=== PATIENT | male | born 1975 | race Caucasian/White ===

== ENCOUNTER 2017-09-13 09:42 | Emergency (ER) | payer OTHER ==
[2017-09-13 09:48] VITALS: BP 136/84; PULSE 81; RESP 18; TEMP 97.8
[2017-09-13] MEDS ORDERED: PROPARACAINE 0.5% OPHTH DROPS 15 ML BTL RIGHT EYE STA (10:01)
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
[2017-09-13] MEDS ORDERED: TOBRAMYCIN 0.3% OPHTH DROPS 5 ML BTL RIGHT EYE STA (10:08)
== END 2017-09-13 10:21 | disposition home or self-care (01) ==
LOC: EC 09:42
DX: Z77.098 Contact with and (suspected) exposure to other hazardous, chiefly nonmedicinal, chemicals (principal); F17.200 Nicotine dependence, unspecified, uncomplicated
CPT/HCPCS: 99283